=== PATIENT | male | born 1965 | race Caucasian/White ===

== ENCOUNTER 2019-03-08 11:49 | Day surgery (SDC) | payer OTHER ==
[~2019-03-08] VITALS: Ht 175.3 cm; Wt 177.0 kg
[~2019-03-08 11:49] MED LIST: ALBU8.5H8 IH; ATOR20TA86 PO; BISA-151 PO; BUME1TAB34 PO; BUPR1PAT9 TD; CALC-1153 PO; CHOL100018 PO; CLON-570 PO; CYAN250014 PO; DIPH-654 PO; GABA-531 PO; HYDR-4065 PO; INSLAN SQ; INSNOV SQ; KDUR10 PO; LACT1CAP78 PO; LOPE-202 PO; LOSA50TA64 PO; METO25 PO; MONT10TA21 PO; MULT1CAP32 PO; OMEG-135 PO; RANI150T7 PO; RIVA10 PO; SERT50TA12 PO; TRI2515C TP; [UNRECOGNIZED DRUG - CODE] PO
[2019-03-08] MEDS ORDERED: PROPOFOL 1% 20 ML VIAL IVP ONE (11:50)
[2019-03-08] MEDS ORDERED: LIDOCAINE/PF 2% 5 ML VIAL IM ONE (11:50)
[2019-03-08] MEDS ORDERED: SODIUM CHLORIDE 0.9% 1,000 ML IV ONE ×2 (11:59→12:00)
[2019-03-08 12:33] LABS: GLUCOMETER DEV NAME(LOC) SDS.; GLUCOSE,POINT OF CARE 218 MG/DL (70-110)
[2019-03-08] MEDS ORDERED: ACETAMINOPHEN 1000 MG/ISO-OSM 100 ML IV ONE ×2 (13:01→13:15)
[2019-03-08] MEDS ORDERED: DICY20TA11 PO (15:32)
== END 2019-03-08 16:20 | disposition home or self-care (01) ==
LOC: SURGERY 11:49
PROVIDERS: ATTEND Student in an Organized Health Care Education/Training Program
DX: D12.0 Benign neoplasm of cecum (principal); D12.3 Benign neoplasm of transverse colon; D12.4 Benign neoplasm of descending colon; K64.8 Other hemorrhoids; K64.4 Residual hemorrhoidal skin tags; K57.30 Diverticulosis of large intestine without perforation or abscess without bleeding; K62.6 Ulcer of anus and rectum; I10 Essential (primary) hypertension; J45.909 Unspecified asthma, uncomplicated; I25.10 Atherosclerotic heart disease of native coronary artery without angina pectoris; E11.9 Type 2 diabetes mellitus without complications; Z98.84 Bariatric surgery status
CPT/HCPCS: 45385; 45380; 82962; 88305; 93005; C1769; J0131; J2704; J3490; J7030